=== PATIENT | male | born 1960 | race Caucasian/White ===

== ENCOUNTER 2020-07-30 22:14 | Emergency (ER) | payer SELFPAY ==
[~2020-07-30] VITALS: Ht 175.3 cm; Wt 74.0 kg
[2020-07-31 04:05] VITALS: BP 132/91
== END 2020-07-31 04:09 | disposition home or self-care (01) ==
LOC: ER 22:14
DX: F10.229 Alcohol dependence with intoxication, unspecified (principal); Y90.9 Presence of alcohol in blood, level not specified; Z59.0 Homelessness
CPT/HCPCS: 93005; 99283